=== PATIENT | female | born 2000 | race Hispanic/Latino ===

== ENCOUNTER 2022-03-30 12:49 | Inpatient (IN) | payer MEDICAID ==
[~2022-03-30] VITALS: Ht 167.6 cm; Wt 73.9 kg
[2022-03-30] MEDS ORDERED: LACTATED RINGERS 1000ML 1,000 ML IV PRN (13:30)
[2022-03-30] MEDS ORDERED: OXYTOCIN-LR 20 UNITS/1000 ML 1,000 ML IV SCH (13:30)
[2022-03-30 13:32] LABS: APPEARANCE,URINE Cloudy (CLEAR); BILIRUBIN,URINE Negative (NEGATIVE); COLOR,URINE Yellow (YELLOW); GLUCOSE, URINE (UA) Negative (NEGATIVE); KETONES,URINE Negative (NEGATIVE); LEUKOCYTE ESTERASE ,URINE Large (NEGATIVE); NITRATE,URINE Negative (NEGATIVE); OCCULT BLOOD,URINE Small (NEGATIVE); PH,URINE 6.5 (5.0-8.0); PROTEIN,URINE Negative (NEGATIVE); UROBILINOGEN,URINE 0.2 mg/dL (0.2-1.0)
[2022-03-30 13:58] LABS: HEMATOCRIT 34.3 % (36-48); MEAN CORPUSCULAR HEMOGLOBIN 28.9 pg (27.0-33.0); MEAN CORPUSCULAR HGB CONC 33.2 g/dL (32.0-36.0); MEAN CORPUSCULAR VOLUME 87.1 fL (79-99); RED BLOOD CELL COUNT(AUTO) 3.94 MIL/uL (4.00-5.50); RED CELL DISTRIBUTION WIDTH 15.9 % (11.0-15.5); WHITE BLOOD COUNT (AUTO) 6.5 K/uL (4.8-10.8)
[2022-03-30 14:07] LABS: BACTERIA,URINE Rare /HPF (None Seen); SQUAMOUS EPITHELIAL CELL,UR Few /HPF (0-2)
[2022-03-30] MEDS ORDERED: DINOPROSTONE 10 MG VAGINAL SUPP VG SCH (14:45)
[2022-03-30] MEDS ORDERED: EPHEDRINE SULFATE 50 MG/ML AMPULE IVP PRN (23:00)
[2022-03-30] MEDS ORDERED: NALOXONE HCL 0.4 MG/1 ML ML IV PRN (23:00)
[2022-03-30] MEDS ORDERED: LACTATED RINGERS 500 ML 500 ML IV PRN (23:00)
[2022-03-30] MEDS ORDERED: PROPOFOL 10 MG/ML 20ML VIAL IV ONE (23:58)
[2022-03-31] MEDS ORDERED: OXYTOCIN-LR 20 UNITS/1000 ML 1,000 ML IV SCH (04:00)
[2022-03-31] MEDS ORDERED: LIDOCAINE HCL 1% 20 ML VIAL ONE (06:11)
[2022-03-31] MEDS ORDERED: DIPH,PERTUSS(ACELL),TET VAC/PF 0.5 ML VIAL IM PRN (06:30)
[2022-03-31] MEDS ORDERED: ACETAMINOPHEN 325 MG TAB PO PRN (06:30)
[2022-03-31] MEDS ORDERED: ACETAMINOPHEN WITH CODEINE 1 TAB TAB PO PRN (06:30)
[2022-03-31] MEDS ORDERED: LANOLIN 30GM OINTMENT TP PRN (06:30)
[2022-03-31] MEDS ORDERED: WITCH HAZEL 1 PAD TP PRN (06:30)
[2022-03-31] MEDS ORDERED: BENZOCAINE/LANOLIN/ALOE VERA 60 ML AEROSOL TP PRN (06:30)
[2022-03-31] MEDS: IBUPROFEN 600 MG TABLET PO PRN (07:27)
[2022-03-31 10:30] VITALS: BP 128/67
[2022-03-31] MEDS: DOCUSATE SODIUM 100 MG CAP PO SCH ×2 (10:41→20:04)
[2022-03-31 11:40] VITALS: BP 136/73
[2022-03-31 15:35] VITALS: BP 115/53
[2022-03-31 19:35] VITALS: BP 118/69
[2022-03-31 23:09] VITALS: BP 113/69
[2022-04-01] MEDS: IBUPROFEN 600 MG TABLET PO PRN ×2 (00:14→08:20)
[2022-04-01 03:17] VITALS: BP 107/65
[2022-04-01 06:33] LABS: HEMATOCRIT 29.7 % (36-48); MEAN CORPUSCULAR HEMOGLOBIN 28.8 pg (27.0-33.0); MEAN CORPUSCULAR HGB CONC 32.7 g/dL (32.0-36.0); MEAN CORPUSCULAR VOLUME 88.1 fL (79-99); RED BLOOD CELL COUNT(AUTO) 3.37 MIL/uL (4.00-5.50); RED CELL DISTRIBUTION WIDTH 16.1 % (11.0-15.5); WHITE BLOOD COUNT (AUTO) 11.3 K/uL (4.8-10.8)
[2022-04-01 07:26] VITALS: BP 114/44
[2022-04-01] MEDS: DOCUSATE SODIUM 100 MG CAP PO SCH (08:20)
[2022-04-01 11:34] VITALS: BP 134/79
[2022-04-01] MEDS ORDERED: IBUP-2088 PO (12:48)
[2022-04-01] MEDS ORDERED: FERR-72 PO (12:50)
== END 2022-04-01 13:35 | disposition home or self-care (01) | DRG 560 ==
LOC: LDH 12:49 → WSH 03-31 09:13
PROVIDERS: ADMIT Obstetrics & Gynecology; ATTEND Obstetrics & Gynecology
PROC: 10E0XZZ Delivery of Products of Conception, External Approach (ICD-10-PCS; principal; 2022-03-31)
PROC: 0KQM0ZZ Repair Perineum Muscle, Open Approach (ICD-10-PCS; 2022-03-31)
PROC: 3E0R3BZ Introduction of Anesthetic Agent into Spinal Canal, Percutaneous Approach (ICD-10-PCS; 2022-03-31)
PROC: 00HU33Z Insertion of Infusion Device into Spinal Canal, Percutaneous Approach (ICD-10-PCS; 2022-03-31)
DX: O99.02 Anemia complicating childbirth (principal); Z37.0 Single live birth; O69.81X0 Labor and delivery complicated by cord around neck, without compression, not applicable or unspecified; O70.1 Second degree perineal laceration during delivery; Z3A.40 40 weeks gestation of pregnancy
CPT/HCPCS: 36415; 81001; 85027; 86592; 86850; 86900; 86901; 87088; 87340; A4314; G0378; J2590; J2704; J7120